=== PATIENT | female | born 1995 | race Two or more races ===

== ENCOUNTER → 2019-09-23 | Outpatient (CLI) | payer OTHER ==
[~2019-09-23] MED LIST: TUSNEL LIQUID178 ML
== END | disposition home or self-care (01) ==
LOC: PRENATAL 09-21 14:30 → EDSEX 14:29 → PRENATAL 14:29
PROVIDERS: ATTEND Obstetrics & Gynecology Maternal & Fetal Medicine
DX: O35.0XX1 Maternal care for (suspected) central nervous system malformation in fetus, fetus 1 (principal); O35.3XX1 Maternal care for (suspected) damage to fetus from viral disease in mother, fetus 1; O28.1 Abnormal biochemical finding on antenatal screening of mother; O98.512 Other viral diseases complicating pregnancy, second trimester; Z36.89 Encounter for other specified antenatal screening; Z3A.22 22 weeks gestation of pregnancy

== ENCOUNTER 2019-11-19 14:06 | Outpatient (CLI) | payer OTHER ==
[2019-11-19] MEDS ORDERED: DIALYVITE 800-1 EACH PO (14:35)
[2019-11-20] MEDS ORDERED: PRENATAL MULTI1 EAC2 PO (07:15)
[2019-11-20] MEDS ORDERED: FEOSOL325 MG PO (07:15)
[2019-11-20] MEDS ORDERED: MACROBID 100 M100 MG PO (07:15)
== END 2019-11-20 08:20 | disposition home or self-care (01) ==
LOC: OBS/DEL 14:06
PROVIDERS: ATTEND Specialist
DX: O26.893 Other specified pregnancy related conditions, third trimester (principal); R10.2 Pelvic and perineal pain; O23.43 Unspecified infection of urinary tract in pregnancy, third trimester; O99.013 Anemia complicating pregnancy, third trimester; D64.89 Other specified anemias

== ENCOUNTER 2020-01-15 13:30 | Inpatient (IN) | payer OTHER ==
[~2020-01-15] VITALS: Ht 152.4 cm; Wt 53.5 kg
[~2020-01-15 13:30] MED LIST changes: +DIALYVITE 800-1 EACH PO; +FEOSOL325 MG PO; +MACROBID 100 M100 MG PO; +PRENATAL MULTI1 EAC2 PO
== END 2020-01-27 17:33 | disposition home or self-care (01) | DRG 807 ==
LOC: LDR 01-25 12:48 → OB/GYN 01-25 12:48
PROVIDERS: ADMIT Specialist; ATTEND Specialist
PROC: 10E0XZZ Delivery of Products of Conception, External Approach (ICD-10-PCS; principal; 2020-01-25)
PROC: 10907ZC Drainage of Amniotic Fluid, Therapeutic from Products of Conception, Via Natural or Artificial Opening (ICD-10-PCS; 2020-01-25)
PROC: 4A1HXFZ Monitoring of Products of Conception, Cardiac Rhythm, External Approach (ICD-10-PCS; 2020-01-25)
PROC: 3E033VJ Introduction of Other Hormone into Peripheral Vein, Percutaneous Approach (ICD-10-PCS; 2020-01-25)
DX: O80 Encounter for full-term uncomplicated delivery (principal); Z37.0 Single live birth; Z3A.40 40 weeks gestation of pregnancy; Z20.828 Contact with and (suspected) exposure to other viral communicable diseases